=== PATIENT | female | born 1950 | race Caucasian/White ===

== ENCOUNTER → 2016-06-15 | Outpatient (CLI) | payer OTHER | LOC: FIMAGING 10:45 | DX: Z12.31 Encounter for screening mammogram for malignant neoplasm of breast (principal) | CPT/HCPCS: G0202 ==

== ENCOUNTER 2016-12-21 09:04 | Inpatient (IN) | payer OTHER ==
[2016-12-07 16:00] LABS: % IMMATURE GRANULYOCYTES 0.3 % (0.0-1.1); ABSOLUTE IMMATURE GRANULOCYTES 0.02 10^3/uL (0.00-0.10); ADD DIFF? NO; ADD MORPH? NO; ADD SCAN? NO; ATYPICAL LYMPHOCYTE FLAG 0 (0-99); FRAGMENT RBC FLAG 0 (0-99); HEMATOCRIT 42.8 % (38.0-47.0); HEMOGLOBIN 14.7 g/dL (12.6-16.3); LEFT SHIFT FLG 0 (0-99); LIPEMIA HEMOLYSIS FLAG 90 (0-99); MEAN CELL HEMOGLOBIN 30.9 pg (27.9-34.1); MEAN CELL HEMOGLOBIN CONCENTR. 34.3 g/dL (32.4-36.7); MEAN CELL VOLUME 89.9 fL (81.5-99.8); MEAN PLATELET VOLUME 9.9 fL (8.7-11.7); PLATELET CLUMPS FLAG 0 (0-99); PLATELET COUNT 237 10^3/uL (150-400); RED BLOOD CELL COUNT 4.76 10^6/uL (4.18-5.33)
[2016-12-18 13:50] LABS: ANION GAP 16 mEq/L (8-16); CALCIUM 10.3 mg/dL (8.5-10.4); CARBON DIOXIDE 26 mEq/l (22-31); CHLORIDE 97 mEq/L (97-110); GLOMERULAR FILTRATION RATE 55; GLUCOSE 91 mg/dL (70-100); SODIUM 139 mEq/L (134-144)
[~2016-12-21 09:04] MED LIST: ROPIVACAINE 0.2% 80 MG, EPINEPHrine 0.2 MG, KETOROLAC TROMETHAMINE 30 MG in BAG 0 ML IU ONE; TRANEXAMIC ACID 3,000 MG in NS 50 ML IRR ONE
[2016-12-21] MEDS ORDERED: ACETAMINOPHEN 325 MG TAB PO ONE (09:13)
[2016-12-21] MEDS ORDERED: DEXAMETHASONE 4 MG/ML VIAL IVP ONE (09:13)
[2016-12-21] MEDS ORDERED: FAMOTIDINE 20 MG TAB PO ONE (09:13)
[2016-12-21] MEDS ORDERED: ceFAZolin 2 GM/DEXTROSE 100 ML IV ONE (09:13)
[2016-12-21] MEDS ORDERED: LIDOCAINE 1% 2 ML INJ ID PRN (09:14)
[2016-12-21] MEDS ORDERED: LR 1,000 ML IV ONE (09:14)
[2016-12-21] MEDS ORDERED: TRANEXAMIC ACID 3,000 MG/50 ML BAG IRR ONE (10:13)
--- NOTE | 2016-12-21 10:14 | PDHPUP ---
History & Physical Update H&P update statement: This history and physical update is based on an assessment of the patient which was completed after admission or registration (within 24 hours), but prior to the surgery/procedure. H&P update: H&P reviewed & patient examined, no change in patient's condition since H&P completed
[2016-12-21] MEDS ORDERED: MIDAZOLAM 2 MG/2 ML VIAL IVP ONE (11:30)
--- NOTE | 2016-12-21 11:34 | PDANEPAE ---
ANE Past Medical History - Cardiovascular History Hx Hypertension: Yes Hx Arrhythmias: No Hx Chest Pain: No Hx Coronary Artery / Peripheral Vascular Disease: No Hx CHF / Valvular Disease: No Hx Palpitations: No Cardiovascular History Comment: pcp monitors bp medications - Pulmonary History Hx COPD: No Hx Asthma/Reactive Airway Disease: No Hx Recent Upper Respiratory Infection: No Hx Oxygen in Use at Home: No Hx Sleep Apnea: No Sleep Apnea Screening Result - Last Documented: Negative - Neurologic History Hx Cerebrovascular Accident: No Hx Seizures: No Hx Dementia: No - Endocrine History Hx Diabetes: No Endocrine History Comment: hypothyroidism. hx of graves disease 20 yrs ago - Renal History Hx Renal Disorders: No - Liver History Hx Hepatic Disorders: No - Neurological & Psychiatric Hx Hx Neurological and Psychiatric Disorders: Yes Neurological / Psychiatric History Comment: slight anxiety - Cancer History Hx Cancer: Yes Cancer History Comment: hx of breast and colon ca - Congenital Disorder History Hx Congenital Disorders: No - GI History Hx Gastrointestinal Disorders: Yes Gastrointestinal History Comment: hx of colon resection for colon ca. occ reflux from diclofenic - Other Health History Other Health History: wears glasses - Chronic Pain History Chronic Pain: Yes (back pain and hip pain) - Surgical History Prior Surgeries: summer 2015 right breast lumpectomy. colon resection. 1989 breast lumpectomies x2. hysterectomy 1979. ovary removed 1978 ANE Review of Systems Review of Systems: - Exercise capacity METS (RN): 4 METS ANE Patient History - Allergies Allergies/Adverse Reactions: No Known Allergies Allergy (Verified 12/17/16 15:58) - Home Medications Home Medications: DICLOFENAC SODIUM 07/30/10 [Last Taken 12/17/16] Citalopram 12/17/16 [Last Taken 12/21/16 07:15] GABAPENTIN 12/17/16 [Last Taken 12/20/16] Hydrochlorothiazide 12/17/16 [Last Taken 12/20/16] LEVOTHYROXINE SODIUM 12/17/16 [Last Taken 12/21/16 07:15] Omeprazole 12/17/16 [Last Taken 12/07/16] TRAMADOL HCL 12/17/16 [Last Taken 12/20/16] Xanax 12/17/16 [Last Taken 11/30/16] - NPO status NPO Since - Liquids (Date): 12/21/16 NPO Since - Liquids (Time): 02:30 NPO Since - Solids (Date): 12/20/16 NPO Since - Solids (Time): 19:00 - Anes Hx Anes Hx: no prior problems - Smoking Hx Smoking Status: Never smoked Marijuana use: No - Family Anes Hx Family Hx Anesthesia Complications: none ANE Labs/Vital Signs - Labs Result Diagrams: 12/07/16 15:39 12/18/16 11:40 - Vital Signs Blood Pressure: 135/88 Heart Rate: 68 Respiratory Rate: 16 O2 Sat (%): 92 Height: 167.64 cm Weight: 83.461 kg ANE Physical Exam - Airway Neck exam: FROM Mallampati Score: Class 1 Mouth exam: normal dental/mouth exam - Pulmonary Pulmonary: no respiratory distress, no rales or rhonchi, clear to auscultation - Cardiovascular Cardiovascular: regular rate and rhythym, no murmur, rub, or gallop - ASA Status ASA Status: II ANE Anesthesia Plan Anesthesia Plan: spinal
[2016-12-21] MEDS ORDERED: fentaNYL 100 MCG/2 ML INJ ONE ×2 (11:39→14:04)
[2016-12-21] MEDS ORDERED: PROPOFOL/EMULSION 500 MG/50 ML BOTTLE IV ONE (11:39)
[2016-12-21] MEDS ORDERED: ONDANSETRON 4 MG/2 ML VIAL IVP PRN ×2 (12:42→13:38)
[2016-12-21] MEDS ORDERED: METOCLOPRAMIDE 10 MG/2 ML VIAL IVP PRN (12:42)
[2016-12-21] MEDS ORDERED: POLYETHYLENE GLYCOL 3350 17 GM PKT PO PRN (12:42)
[2016-12-21] MEDS ORDERED: ONDANSETRON DISINTEGRATING 4 MG TAB PO PRN (12:42)
[2016-12-21] MEDS ORDERED: PROMETHAZINE HCL 25 MG/ML INJ IVP PRN ×2 (12:42→13:38)
[2016-12-21] MEDS ORDERED: LACTULOSE 20 GM/30 ML UDCUP PO PRN (12:42)
[2016-12-21] MEDS ORDERED: DIPHENOXYLATE/ATROPINE LOMOTIL 1 TAB PO PRN (12:42)
[2016-12-21] MEDS ORDERED: TEMAZEPAM 15 MG CAP PO PRN (12:42)
[2016-12-21] MEDS ORDERED: PROMETHAZINE HCL 25 MG SUPPR PR PRN (12:42)
[2016-12-21] MEDS ORDERED: diphenhydrAMINE 25 MG CAP PO PRN (12:42)
[2016-12-21] MEDS ORDERED: BISACODYL 10 MG SUPP PR PRN (12:42)
[2016-12-21] MEDS ORDERED: MAGNESIUM HYDROXIDE 30 ML UDCUP PO PRN (12:42)
[2016-12-21] MEDS ORDERED: LR 1,000 ML IV SCH (13:00)
[2016-12-21] MEDS ORDERED: PHENYLEPHRINE HCL 100 MCG/ML SYR ONE (13:18)
[2016-12-21] MEDS ORDERED: OXYCODONE/APAP 5/325 TAB PO PRN (13:38)
[2016-12-21] MEDS ORDERED: NALOXONE HCL 0.4 MG/ML INJ IVP PRN (13:38)
[2016-12-21] MEDS ORDERED: MEPERIDINE 25 MG/ML SYR IVP PRN (13:38)
[2016-12-21] MEDS ORDERED: HYDROCODONE/APAP 5/325 TAB PO PRN (13:38)
[2016-12-21] MEDS ORDERED: ACETAMINOPHEN 500 MG TAB PO PRN (13:38)
[2016-12-21] MEDS ORDERED: LR 500 ML IV PRN (13:38)
[2016-12-21] MEDS ORDERED: ceFAZolin 2 GM/DEXTROSE 100 ML IV SCH (14:00)
[2016-12-21] MEDS: fentaNYL 100 MCG/2 ML INJ IVP PRN ×2 (14:05→14:15)
--- NOTE | 2016-12-21 14:09 | POSTOPPROG ---
Post Op Note Date of Operation: 12/21/16 Surgeon: Daniela Glass [employer] Foreman: Moon Anesthesiologist: Kimmy Anesthesia: Spinal Pre-op Diagnosis: R hip DJD Post-op Diagnosis: same Indication: pain Procedure: R MADIE Findings: DJD hip Inf/Abcess present in the surg proc area at time of surgery?: No EBL: 100-500
[2016-12-21] MEDS ORDERED: HYDROmorphONE/DILAUDID 1 MG/ML INJ ONE ×3 (14:20→15:35)
[2016-12-21] MEDS: HYDROmorphONE/DILAUDID 1 MG/ML INJ IVP PRN ×6 (14:22→15:45)
[2016-12-21] MEDS: oxyCODONE IR 5 MG TAB PO PRN ×3 (15:18→21:31)
[2016-12-21] MEDS ORDERED: oxyCODONE IR 5 MG TAB ONE (15:18)
[2016-12-21] MEDS ORDERED: WARFARIN SODIUM 5 MG TAB PO SCH (16:00)
--- NOTE | 2016-12-21 16:11 | POSTANESTH ---
Post Anesthetic Evaluation Cardiovascular Status: Normal, Stable, Similar to Pre-Op Cond Respiratory Status: Normal, Stable, Similar to Pre-op Cond. Level of Consciousness/Mental Status: Can Participate in Eval, Alert and Oriented Pain Control: Inadeq, Add Tx Required (Able to move legs on arrival in PACU, complains of pain.) Nausea/Vomiting Control: Adequate, Prn Tx Ordered Complications Possibly Related to Anesthesia: None Noted
[2016-12-21] MEDS: ACETAMINOPHEN 325 MG TAB PO SCH ×2 (16:32→23:05)
[2016-12-21] MEDS ORDERED: NON-FORMULARY NEW DRUG (Omeprazole [Prilosec 20 Mg] 20 MG) PO PRN (18:27)
[2016-12-21] MEDS ORDERED: ALPRAZolam 0.25 MG TAB PO PRN (18:27)
[2016-12-21] MEDS ORDERED: traMADol 50 MG TAB PO PRN (18:27)
[2016-12-21] MEDS ORDERED: PANTOPRAZOLE SODIUM 40 MG TAB PO PRN (18:37)
[2016-12-21] MEDS: CYCLOBENZAPRINE 10 MG TAB PO PRN (18:46)
[2016-12-21] MEDS: FAMOTIDINE 20 MG TAB PO SCH (21:31)
[2016-12-21] MEDS: SENNOSIDES/DOCUSATE SODIUM TAB PO SCH (21:31)
[2016-12-21] MEDS: ceFAZolin 2 GM/DEXTROSE 100 ML IV SCH (21:32)
--- NOTE | 2016-12-21 23:04 | GOP ---
[f rep st] OPERATIVE REPORT DATE OF OPERATION: 12/21/16 SURGEON: Ricky Glass MD ANESTHESIA: Spinal. PREOPERATIVE DIAGNOSIS: Right hip arthritis. POSTOPERATIVE DIAGNOSIS: Right hip arthritis. PROCEDURE PERFORMED: Right total hip arthroplasty with x-ray. FINDINGS: ESTIMATED BLOOD LOSS: 200 cc. INDICATIONS: The patient has progressively worsening arthritis of the hip which has failed medical management. The patient understands the treatment options including continued non-operative care and has selected surgical intervention. The patient has decided to undergo total hip arthroplasty via the direct anterior approach, understanding the risks of the procedure including , but not limited to, neurovascular injury, infection, persistent pain, component wear and loosening, deep venous thrombosis, pulmonary embolism, limb length inequality, hip instability (including dislocation), and intra-operative fractures. DESCRIPTION OF PROCEDURE: After proper identification of the patient including verification and marking the surgical site, the patient was brought to the operating room and placed in the supine position. All bony prominences were well padded. Anesthesia was induced without complication and intravenous prophylactic antibiotics were administered prior to skin incision. The operative leg was placed in the Trumpf Arch table extension and the well leg in a Yellofin leg marte. The patient was prepped and draped in the usual sterile fashion. The C-arm was draped for intra-operative fluoroscopy to check acetabular position, femoral component position including leg length and femoral offset. Attention was then drawn to surgical exposure of the hip. An incision was made with a #10 Bard Yannick blade starting 3 cm lateral and 3 cm distal to the anterior superior iliac spine measuring 8-10 cm and coursing distally toward the greater trochanter. The skin and subcutaneous tissues were divided sharply down to the fascia willy. The fascia willy was incised in line with the skin incision exposing the underlying tensor fascia willy muscle. The muscle was bluntly elevated from the fascia and the first extracapsular Cobra retractor was placed laterally at the junction of the superior femoral neck and greater trochanter. The lateral femoral circumflex vessels were identified, cauterized , and divided with the Aquamantys bipolar cautery. The deep investing fascia of the TFL was divided to allow proper mobilization of the muscle preventing damage during the retraction. The reflected head of the rectus femoris muscle was elevated off the anterior hip capsule and a medial Cobra retractor was placed just proximal to the lesser trochanter. The anterior capsulotomy was made sharply from the superolateral acetabulum to the saddle junction of the superior femoral neck and greater trochanter, then coursing inferomedial towards the lesser trochanter. The retractors were then placed in the intracapsular position for femoral neck osteotomy. Corresponding to pre-operative templating, the osteotomy was made with the oscillating saw carefully protecting the greater trochanter and soft tissues. The femoral head was removed from the acetabulum with a corkscrew and confirmed to be severely arthritic with exposed bone, deformity and osteophytes. Similar findings were confirmed in the acetabulum. The Arch table extension was then placed in 40 degrees external rotation. Attention was then drawn to the acetabular preparation. After placement of the anterior and posterior Cobra retractors outside the labrum and intracapsular, the circumferential labrum was removed sharply. The foveal contents were then removed and hemostasis obtained with cautery. The first reamer selected was sized using the removed femoral head. Reaming began with medialization and then commenced in 2 mm increments at 45 degrees of abduction and 15 degrees of anteversion using fluoroscopic navigation. Reaming ceased 1 mm less than the definitive acetabular component and corresponded to the pre-operative templating. The final acetabular component was inserted using fluoroscopy to achieve proper orientation yielding excellent purchase and stability in the acetabulum. The final acetabular liner was then placed and its seating confirmed. Attention was then turned to the femur. The Arch table extension was placed in extension and adduction, delivering the osteotomized femoral neck into the wound. A 2-pronged femoral elevator was placed at the calcar and another at the tip of the greater trochanter. The posterolateral capsule was released with cautery allowing mobilization of the femur lateral and anterior for preparation. The external rotators were visualized and preserved. A curette and rongeur were used to open the starting point for broaching. Serial broaching started with the #0 broach and ended with the broach that exhibited excellent fit in the proximal femur. A change in pitch during mallet strikes was accompanied by the inability to advance the broach any further. The trial reduction was performed and fluoroscopic navigation was utilized to check limb length. Adjustments were made to equalize limb length accordingly. After the final trials were accepted they were removed and the wound was copiously lavaged. The femoral component was seated to the same depth as the final broach and the femoral head was impacted onto the clean trunnion. The hip was then reduced for the final time and once more fluoroscopy was used to check that limb length equality was achieved. The wound was irrigated and closed in layers, the fascia willy with 2-0 Quill, the subcutaneous tissue with 2-0 Quill, and the skin with Dermabond. Sterile dressings were applied. Final sharps and sponge counts were accurate. The patient was then transferred to a hospital bed and brought to the recovery room in stable condition. IMPLANTS: Accolate II, size 3, at 127. Acetabular component a 54 mm Tritanium. The liner is a Trident x3, 36 mm. The head is a Biolox Delta 36 mm , +2.5. /[id number]/MODL MTDD
[2016-12-22 02:39] VITALS: BP 123/62
[2016-12-22] MEDS: oxyCODONE IR 5 MG TAB PO PRN ×3 (02:54→11:15)
[2016-12-22] MEDS: ceFAZolin 2 GM/DEXTROSE 100 ML IV SCH (03:00)
[2016-12-22] MEDS: CYCLOBENZAPRINE 10 MG TAB PO PRN (05:21)
[2016-12-22] MEDS: ACETAMINOPHEN 325 MG TAB PO SCH (05:21)
[2016-12-22 05:34] LABS: HEMATOCRIT 33.8 % (38.0-47.0); HEMOGLOBIN 11.9 g/dL (12.6-16.3)
[2016-12-22] MEDS ORDERED: LEVOTHYROXINE 125 MCG TAB PO SCH (06:00)
[2016-12-22] MEDS: SENNOSIDES/DOCUSATE SODIUM TAB PO SCH (08:18)
[2016-12-22] MEDS: FAMOTIDINE 20 MG TAB PO SCH (08:20)
[2016-12-22] MEDS ORDERED: CITALOPRAM 20 MG TAB PO SCH (09:00)
[2016-12-22] MEDS ORDERED: ENOXAPARIN 40 MG/0.4 ML SYR SC SCH (09:00)
[2016-12-22] MEDS ORDERED: GABAPENTIN 100 MG CAP PO SCH (09:00)
[2016-12-22] MEDS ORDERED: HYDROCHLOROTHIAZIDE 25 MG TAB PO SCH (09:00)
[2016-12-22 09:01] VITALS: PULSE 67; RESP 17; TEMP 97.7; O2SAT 97
--- NOTE | 2016-12-22 10:29 | SOAPPROG ---
SOAP Progress Note Assessment/Plan: Assessment: Patient is doing well POD 1 s/p R MADIE Pain management: pain is well controlled on oral pain meds. VTE ppx: recommend lovenox x 4 days followed by coumadin daily for 3 weeks, cont JEMMA and SCDs Anemia: level is expected initially postop. Asymptomatic. Continue to monitor D/c planning: d/c to home today pending release from PT Plan: 12/22/16 10:27 Objective: Vital Signs Temp Pulse Resp BP Pulse Ox 36.5 C 67 17 123/62 H 97 12/22/16 08:00 12/22/16 08:00 12/22/16 08:00 12/22/16 08:19 12/22/16 08:00 Laboratory Results 12/22/16 05:19 12/18/16 11:40 12/21/16 12/22/16 12/23/16 05:59 05:59 05:59 Intake Total 1580 Output Total 1100 Balance 480 ICD10 Worksheet Patient Problems: Problems Problem Status Onset Osteoarthritis of hip Acute - ICD10 Problem Qualifiers (1) Osteoarthritis of hip Qualifiers: Osteoarthritis type: primary Laterality: right Qualified Code(s): M16.11 - Unilateral primary osteoarthritis, right hip
== END 2016-12-22 11:27 | disposition home or self-care (01) | DRG 470 ==
LOC: F3N 09:04
PROVIDERS: ADMIT Orthopaedic Surgery; ATTEND Orthopaedic Surgery
PROC: 0SR904Z Replacement of Right Hip Joint with Ceramic on Polyethylene Synthetic Substitute, Open Approach (ICD-10-PCS; principal; 2016-12-21 11:15)
DX: M16.11 Unilateral primary osteoarthritis, right hip (principal); I10 Essential (primary) hypertension; K21.9 Gastro-esophageal reflux disease without esophagitis; E03.9 Hypothyroidism, unspecified; Z85.038 Personal history of other malignant neoplasm of large intestine; Z85.3 Personal history of malignant neoplasm of breast
CPT/HCPCS: 97161-GP; 97165-GO; 97535-GO; G8978-GP-CI; G8979-GP-CI; G8980-GP-CI; G8987-GO-CI; G8988-GO-CI; G8989-GO-CI; J0171; J0690; J1100; J1170; J1650; J1885; J2250; J2370; J2704; J2795; J3010

== ENCOUNTER → 2017-07-10 | Outpatient (CLI) | payer OTHER | LOC: FIMAGING 15:32 | PROVIDERS: ATTEND Internal Medicine | DX: N63.11 Unspecified lump in the right breast, upper outer quadrant (principal) ==

== ENCOUNTER → 2017-07-18 | Outpatient (CLI) | payer OTHER ==
[~2017-07-18] MED LIST changes: +GADOBUTROL 10 ML VIAL IVP ONE; -ROPIVACAINE 0.2% 80 MG, EPINEPHrine 0.2 MG, KETOROLAC TROMETHAMINE 30 MG in BAG 0 ML IU ONE; -TRANEXAMIC ACID 3,000 MG in NS 50 ML IRR ONE
== END ==
LOC: FIMAGING 10:29
PROVIDERS: ATTEND Internal Medicine
DX: N64.59 Other signs and symptoms in breast (principal); Z85.3 Personal history of malignant neoplasm of breast
CPT/HCPCS: 0159T; A9585; C8908

== ENCOUNTER → 2018-02-07 | Outpatient (CLI) | payer OTHER | LOC: FIMAGING 12:54 | PROVIDERS: ATTEND Psychiatry & Neurology Neurology | DX: R41.3 Other amnesia (principal); Z85.3 Personal history of malignant neoplasm of breast | CPT/HCPCS: 70553; A9585; 82565-PO ==

== ENCOUNTER → 2018-07-07 | Outpatient (CLI) | payer OTHER | LOC: FIMAGING 11:12 | PROVIDERS: ATTEND Internal Medicine | DX: Z12.31 Encounter for screening mammogram for malignant neoplasm of breast (principal); Z85.3 Personal history of malignant neoplasm of breast; Z80.3 Family history of malignant neoplasm of breast ==